=== PATIENT | female | born 2000 | race Caucasian/White ===

== ENCOUNTER 2021-06-02 16:18 | Emergency (ER) | payer SELFPAY ==
--- NOTE | 2021-06-02 16:50 | EDM.PDOC ---
ED HPI GENERAL MEDICAL PROBLEM - General Chief Complaint: Lower Extremity Injury/Pain Stated Complaint: RT ANKLE INJURY Time Seen by Provider: 06/02/21 16:40 Source of Information: Reports: Patient, Family History Limitations: Reports: No Limitations - History of Present Illness INITIAL COMMENTS - FREE TEXT/NARRATIVE: 20-year-old female who [place] 1 hour ago turning her right ankle. She has significant pain over the lateral aspect of the ankle, tender to bear weight. Swelling and bruising has developed over the lateral ankle as well. No other injury. Onset: Sudden Duration: Hour(s): (1 hour ago) Location: Reports: Lower Extremity, Right Associated Symptoms: Reports: No Other Symptoms Right Ankle Pain Score (Numeric/FACES): 8 - Related Data Allergies Allergy/AdvReac Type Severity Reaction Status Date / Time No Known Allergies Allergy Verified 06/02/21 16:37 Home Meds: Home Meds Propranolol [Inderal] 20 mg PO DAILY 06/02/21 [History] Past Medical History HEENT History: Reports: Impaired Vision Neurological History: Reports: Migraines, Other (See Below) Psychiatric History: Reports: Depression Endocrine/Metabolic History: Reports: Obesity/BMI 30+ - Infectious Disease History Infectious Disease History: Reports: Novel Coronavirus - Past Surgical History Head Surgeries/Procedures: Reports: None HEENT Surgical History: Reports: Adenoidectomy, Tonsillectomy Endocrine Surgical History: Reports: None Neurological Surgical History: Reports: None Dermatological Surgical History: Reports: None Social & Family History - Tobacco Use Tobacco Use Status *Q: Never Tobacco User Second Hand Smoke Exposure: No - Caffeine Use Caffeine Use: Reports: Coffee - Recreational Drug Use Recreational Drug Use: No Review of Systems - Review of Systems Review Of Systems: See Below Respiratory: Reports: No Symptoms Cardiovascular: Reports: No Symptoms Genitourinary: Reports: No Symptoms Musculoskeletal: Reports: Other (Right ankle pain) Skin: Reports: Bruising Neurological: Reports: No Symptoms Psychiatric: Reports: No Symptoms ED EXAM, GENERAL - Physical Exam Exam: See Below Exam Limited By: No Limitations General Appearance: Alert, No Apparent Distress Head: Atraumatic Respiratory/Chest: No Respiratory Distress Extremities: Other (Hips are nontender, knee is nontender on the right side. She does have some mild to moderate swelling developing over the lateral malleolus of the right ankle, and it is very tender to palpation. There is some tenderness over the medial malleolus) Neurological: Alert, Oriented, No Motor/Sensory Deficits Course - Vital Signs Last Recorded V/S: Last Vital Signs Temp 98.3 F 06/02/21 16:34 Pulse 79 06/02/21 16:34 Resp 14 06/02/21 16:34 BP 123/46 L 06/02/21 16:34 Pulse Ox 96 06/02/21 16:34 - Orders/Labs/Meds Orders: Active Orders 24 hr Category Date Time Status Consult to Orthopedic Clinic [CONS] Routine Cons 06/02/21 17:10 Active Ankle Min 3V Rt [CR] Stat Exams 06/02/21 16:46 Taken DME for Discharge [COMM] Stat Oth 06/02/21 17:08 Ordered DME for Discharge [COMM] Stat Oth 06/02/21 17:08 Ordered - Re-Assessments/Exams Free Text/Narrative Re-Assessment/Exam: 06/02/21 16:50 3 view right ankle x-ray was obtained. 06/02/21 17:09 X-ray shows a nondisplaced spiral fracture of the distal fibula, tibia is normal. Patient was placed in a walking boot, given crutches, and encouraged to avoid weightbearing on the right foot and recheck with Dr. Monsalve on for advice on continuing care. Elevate when able and ibuprofen will be helpful. Departure - Departure Time of Disposition: 17:39 Disposition: Home, Self-Care 01 Clinical Impression: Closed fibular fracture Qualifiers: Encounter type: initial encounter Fibula location: distal Fracture morphology: other fracture Laterality: right Qualified Code(s): S82.831A - Other fracture of upper and lower end of right fibula, initial encounter for closed fracture - Discharge Information Instructions: Tibial and Fibular Fractures Referrals: PCP,None [Primary Care Provider] - Forms: ED Department Discharge Care Plan Goals: Keep walking boot on and use crutches with minimal weightbearing on the right foot. You should get a call from Dr. Monsalve discussing appointment time later this week. Elevate the foot when able, ibuprofen will help with pain. Sepsis Event Note (ED) - Evaluation Sepsis Screening Result: No Definite Risk - Focused Exam Vital Signs: Vital Signs Temp Pulse Resp BP Pulse Ox 06/02/21 16:34 98.3 F 79 14 123/46 L 96 06/02/21 16:33 98.3 F 79 14 123/46 L 96 - My Orders Last 24 Hours: My Active Orders 06/02/21 16:46 Ankle Min 3V Rt [CR] Stat 06/02/21 17:08 DME for Discharge [COMM] Stat DME for Discharge [COMM] Stat 06/02/21 17:10 Consult to Orthopedic Clinic [CONS] Routine - Assessment/Plan Last 24 Hours: My Active Orders 06/02/21 16:46 Ankle Min 3V Rt [CR] Stat 06/02/21 17:08 DME for Discharge [COMM] Stat DME for Discharge [COMM] Stat 06/02/21 17:10 Consult to Orthopedic Clinic [CONS] Routine
--- NOTE | 2021-06-03 08:56 | CR ---
Ankle Min 3V Rt CLINICAL HISTORY: Jumped into shallow [place] FINDINGS: The soft tissues are swollen. There is a comminuted nondisplaced fracture of the distal fibula. Tibia appears intact. Ankle mortise is mildly asymmetric with some narrowing medially. Impression: Fracture distal fibula Asymmetric ankle mortise suggests ligamentous injury
== END 2021-06-02 17:38 | disposition home or self-care (01) ==
LOC: JP.ED 16:18
DX: S82.831A Other fracture of upper and lower end of right fibula, initial encounter for closed fracture (principal); E66.9 Obesity, unspecified; Z68.34 Body mass index [BMI] 34.0-34.9, adult; Z86.16 Personal history of COVID-19; X50.1XXA Overexertion from prolonged static or awkward postures, initial encounter; Y93.39 Activity, other involving climbing, rappelling and jumping off
CPT/HCPCS: 73610-26-RT; 73610-RT; 99283-25